=== PATIENT | female | born 1960 ===

== ENCOUNTER 2017-12-18 08:52 | Day surgery (SDC) | payer BC ==
[~2017-12-18 08:52] MED LIST: Bupivacaine 0.5% 10 ML SDV ONE; Ketorolac 30 MG/ML SDV ONE; Lidocaine 2% 5 ML SDV ONE; Midazolam 1 MG/ML 2 ML SDV ONE; Ondansetron 4 MG/2 ML SDV ONE; Propofol 200 MG/20 ML SDV ONE; ceFAZolin 1 GM in Premix Bag 1 BAG IV SCH; fentaNYL 250 MCG/5 ML SDV ONE
[2017-12-18] MEDS: Lactated Ringers 1,000 ML IV SCH ×2 (09:30→11:42)
--- NOTE | 2017-12-18 09:39 | PCM.PREANE ---
Preanesthetic Assessment - Anesthesia/Transfusion/Family Hx Anesthesia History: Prior Anesthesia Without Reaction Family History of Anesthesia Reaction: No Transfusion History: No Prior Transfusion(s) Intubation History: Unknown - Review of Systems General: No Symptoms Pulmonary: No Symptoms Cardiovascular: No Symptoms Gastrointestinal: No Symptoms Neurological: No Symptoms Other: Reports: None - Physical Assessment Height: 1.73 m Weight: 63.503 kg ASA Class: 1 Mental Status: Alert & Oriented x3 Airway Class: Mallampati = 1 Dentition: Reports: Normal Dentition Thyro-Mental Finger Breadths: 3 Mouth Opening Finger Breadths: 3 ROM/Head Extension: Full Lungs: Clear to Auscultation, Normal Respiratory Effort Cardiovascular: Regular Rate, Regular Rhythm - Allergies Allergies/Adverse Reactions: Allergies Allergy/AdvReac Type Severity Reaction Status Date / Time No Known Allergies Allergy Verified 12/17/17 15:55 - Blood Blood Available: No - Anesthesia Plan Pre-Op Medication Ordered: None - Acknowledgements Anesthesia Type Planned: General Anesthesia Pt an Appropriate Candidate for the Planned Anesthesia: Yes Alternatives and Risks of Anesthesia Discussed w Pt/Guardian: Yes Pt/Guardian Understands and Agrees with Anesthesia Plan: Yes PreAnesthesia Questionnaire HEENT History: Reports: Other (See Below) Other HEENT History: wears glasses Genitourinary History: Reports: Renal Calculus Musculoskeletal History: Reports: Fracture (left forarm) - Past Surgical History Female Surgical History: Reports: Lithotripsy/ESWL Musculoskeletal Surgical History: Reports: Other (See Below) Other Musculoskeletal Surgeries/Procedures:: Closed Reduction Left Arm - SUBSTANCE USE Smoking Status *Q: Never Smoker Recreational Drug Use History: No - HOME MEDS Home Medications: Home Meds . [No Known Home Meds] 12/17/17 [History] - CURRENT (IN HOUSE) MEDS Current Meds: Current Medications Hydrocodone Bitart/Acetaminophen ([place] 325-5 Mg) 1 - 2 tab PO Q4H PRN PRN Reason: Pain Cefazolin Sodium/Dextrose 1 gm (/ Premix) 50 mls @ 100 mls/hr IV ONCALL NIECY Lactated Ringer's (Ringers, Lactated) 1,000 mls @ 100 mls/hr IV ASDIRECTED NIECY Discontinued Medications Bupivacaine HCl (Sensorcaine-Mpf 0.5%) Confirm Administered Dose 10 ml .ROUTE .STK-MED ONE Stop: 12/18/17 08:12 Fentanyl (Sublimaze) Confirm Administered Dose 250 mcg .ROUTE .STK-MED ONE Stop: 12/18/17 08:19 Cefazolin Sodium/Dextrose (Ancef) Confirm Administered Dose 50 mls @ as directed .ROUTE .STK-MED ONE Stop: 12/18/17 08:20 Ketorolac Tromethamine (Toradol) Confirm Administered Dose 30 mg .ROUTE .STK- MED ONE Stop: 12/18/17 08:20 Lidocaine (Xylocaine-Mpf 2%) Confirm Administered Dose 10 ml .ROUTE .STK-MED ONE Stop: 12/18/17 08:18 Midazolam HCl (Versed 1 Mg/Ml) Confirm Administered Dose 2 mg .ROUTE .STK-MED ONE Stop: 12/18/17 08:19 Ondansetron HCl (Zofran) Confirm Administered Dose 4 mg .ROUTE .STK-MED ONE Stop: 12/18/17 08:20 Propofol (Diprivan 20 Ml) Confirm Administered Dose 400 mg .ROUTE .STK-MED ONE Stop: 12/18/17 08:19
--- NOTE | 2017-12-18 10:57 | PCM.OPNOTE ---
- General Post-Op/Procedure Note Date of Surgery/Procedure: 12/18/17 Operative Procedure(s): ORIF left distal radius Post-Op Diagnosis: L distal radius fracture Anesthesia Technique: General LMA Primary Surgeon: Luisa Valencia Superintendent Overhead Distribution: Hailey Turner Superintendent Overhead Distribution: Reji Mendoza in mLs: 10 Condition: Good Free Text/Narrative:: tt=34 min #[id number]
[2017-12-18] MEDS: fentaNYL 100 MCG/2 ML SDV IVPUSH PRN ×6 (11:23→13:15)
--- NOTE | 2017-12-18 12:00 | PCM.POSTAN ---
POST ANESTHESIA ASSESSMENT - MENTAL STATUS Mental Status: Alert, Oriented - RESPIRATORY Respiratory Status: Respiratory Rate WNL, Airway Patent, O2 Saturation Stable - CARDIOVASCULAR CV Status: Pulse Rate WNL - GASTROINTESTINAL GI Status: No Symptoms - PAIN Pain Score: 5 - POST OP HYDRATION Hydration Status: Adequate & Stable - OBSERVATIONS Free Text/Narrative:: no anesthesia problems
[2017-12-18] MEDS: Acetaminophen/HYDROcodone 325-5 MG Tab PO PRN ×2 (12:01→13:00)
--- NOTE | 2017-12-18 13:58 | OR ---
SURGEON: Luisa Valencia MD DATE OF PROCEDURE: 12/18/2017 PREOPERATIVE DIAGNOSIS: Left distal radius fracture, extra-articular. POSTOPERATIVE DIAGNOSIS: Left distal radius fracture, extra-articular. PROCEDURE: Open reduction and internal fixation, left distal radius fracture, extra- articular. ASSISTANTS: Hailey Turner PA-C and Reji Sanchez MD, PGY-2. ANESTHESIA: General. ESTIMATED BLOOD LOSS: 5 mL. TOURNIQUET TIME: 34 minutes. COMPLICATIONS: None. DVT PROPHYLAXIS: PAS boots to bilateral lower extremities. IMPLANTS USED: Alexis 4-hole narrow distal radius plate with combination of 2.3 mm locking and 2.7 mm nonlocking screws. BRIEF HISTORY: Bianca is a 57-year-old female who sustained a fall, landing on her left wrist. She underwent closed reduction in [place], however, the fracture did not maintain its position. At that time, I did discuss both surgical and conservative treatment options. It was elected to proceed with surgical treatment. The risks and goals of procedure were discussed with the patient and were documented preoperatively. She agreed to proceed. DESCRIPTION OF PROCEDURE: The patient was properly identified and brought to the operating room. She was transferred from the OR cart and placed on the operating table in supine position. General anesthesia was administered. After adequate anesthesia was obtained, a well-padded tourniquet was applied to the left upper extremity. Left upper extremity was then prepped in standard fashion using ChloraPrep solution. It was then sterilely draped. A time-out was performed to ensure correct site and procedure. Preoperative antibiotics were given. The surgical site had been marked preoperatively. An Esmarch was used to exsanguinate the left upper extremity and the tourniquet was inflated to 200 mmHg. An incision was made over the volar aspect of the forearm, centered over the FCR tendon. Subcutaneous tissues were incised. Electrocautery was used to maintain hemostasis. The FCR tendon was identified. Its sheath was incised. It was then pulled in a radial manner. The floor of the tendon sheath was then incised. The FPL was identified and brought in an ulnar fashion. The pronator quadratus was then visualized. Electrocautery was used to make an incision through the radial aspect of the pronator quadratus. The muscle was then cleared from the bone. The fracture was identified. A [place] was placed into the fracture site and this was opened. It was copiously irrigated with saline solution to remove the fracture hematoma. The [place] elevator was then used to reduce the fracture. We did use C-arm imaging for assistance. Initially, the wide plate was placed. This was too wide to accommodate her distal radius. We elected to proceed with a narrow distal radius plate with 4 holes proximally. This was held in place in both the AP and lateral plane. The oblong screw hole proximally was then drilled with a 2.7 mm screw. A 2.3 mm locking screw was then drilled proximally. It was not completely tightened. The proximal screw that had been previously placed was then loosened. The distal screw was then tightened into place followed by the proximal screw. This helped to improve the volar tilt of the fracture. The remainder of the distal screws were filled with 2.3 mm locking screws. 2.7 mm nonlocking screws were used proximally. Final C- arm images confirmed acceptable reduction of the fracture with good position of the hardware. The wound was then copiously irrigated with saline solution. The pronator quadratus was reapproximated with 0 Vicryl. The tourniquet was then deflated. No significant bleeding was noted. The subcutaneous tissues were closed with 3-0 Vicryl and the skin was closed with a running 4-0 Monocryl suture. Steri-Strips and Benzoin were placed. Xeroform gauze was placed over the wound and a bulky dressing was applied. She was placed in a well-padded volar splint. She was awakened from her anesthetic and transferred back to the operating room cart. She was brought to recovery room in stable condition. All needle and sponge counts were correct. LUIS / ELDER /[id number]
--- NOTE | 2017-12-18 15:52 | CR ---
EXAMINATION: Left wrist HISTORY: ORIF COMPARISON: 12/17/2017 TECHNIQUE: 3 fluoroscopic images provided FINDINGS/IMPRESSION: Operative control films demonstrate screw and plate fixation of a distal radius fracture in near-anatomic alignment.
== END 2017-12-18 14:15 | disposition home or self-care (01) ==
LOC: MW.SDS 08:52
PROVIDERS: ATTEND Orthopaedic Surgery
DX: S52.552A Other extraarticular fracture of lower end of left radius, initial encounter for closed fracture (principal); W19.XXXA Unspecified fall, initial encounter
CPT/HCPCS: 25607; 76000; A9270; C1713; J0690; J1885; J2250; J2405; J3010; J7120; J2704